=== PATIENT | male | born 1995 | race African-American/Black ===

== ENCOUNTER 2019-01-07 22:43 | Emergency (ER) | payer SELFPAY ==
[~2019-01-07] VITALS: Ht 172.7 cm; Wt 110.0 kg
[2019-01-08] MEDS ORDERED: IBUPROFEN 600MG TABLET PO STA (01:08)
[2019-01-08] MEDS ORDERED: BACITRACIN ZINC OINT UDPKT TOP ONE (01:15)
[2019-01-08 02:45] VITALS: BP 122/81
== END 2019-01-08 02:46 | disposition home or self-care (01) ==
LOC: ER 22:43
DX: L03.032 Cellulitis of left toe (principal); F12.10 Cannabis abuse, uncomplicated; F17.210 Nicotine dependence, cigarettes, uncomplicated
CPT/HCPCS: 99283

== ENCOUNTER 2023-10-11 18:42 | Emergency (ER) | payer SELFPAY ==
[~2023-10-11] VITALS: Ht 170.2 cm; Wt 114.0 kg
[2023-10-11 18:47] VITALS: BP 137/97; PULSE 89; RESP 12; TEMP 98.7; O2SAT 98
[2023-10-11] MEDS ORDERED: IBUP-2029 MT (21:38)
[2023-10-11] MEDS ORDERED: METH-653 MT (21:38)
== END 2023-10-11 22:38 | disposition home or self-care (01) ==
LOC: ER 18:42
DX: S29.011A Strain of muscle and tendon of front wall of thorax, initial encounter (principal); F12.90 Cannabis use, unspecified, uncomplicated; X58.XXXA Exposure to other specified factors, initial encounter; Y93.89 Activity, other specified; Y92.89 Other specified places as the place of occurrence of the external cause; Y99.8 Other external cause status
CPT/HCPCS: 71045; 93005; 99283

== ENCOUNTER 2024-10-26 07:28 | Emergency (ER) | payer MEDICAID ==
[~2024-10-26] VITALS: Ht 170.2 cm; Wt 105.0 kg
[~2024-10-26 07:28] MED LIST: IBUP-2029 MT; METH-653 MT
[2024-10-26 07:38] VITALS: BP 153/99; TEMP 36.9; O2SAT 100
[2024-10-26 07:57] VITALS: PULSE 71; RESP 18; O2SAT 100
[2024-10-26] MEDS ORDERED: TRIMO LEFTEYE (08:49)
== END 2024-10-26 09:16 | disposition home or self-care (01) ==
LOC: ER 07:28
DX: H10.89 Other conjunctivitis (principal); F12.10 Cannabis abuse, uncomplicated
CPT/HCPCS: 99283

== ENCOUNTER 2025-01-18 15:06 | Emergency (ER) | payer MEDICAID ==
[~2025-01-18] VITALS: Ht 172.7 cm; Wt 114.0 kg
[~2025-01-18 15:06] MED LIST changes: +TRIMO LEFTEYE
[2025-01-18 15:15] VITALS: O2SAT 96
[2025-01-18] MEDS ORDERED: IBUP-2030 MT (16:49)
[2025-01-18] MEDS: IBUPROFEN 800MG TABLET PO ONE (17:12)
[2025-01-18 17:21] VITALS: BP 126/88; PULSE 85; RESP 16; TEMP 37; O2SAT 100
== END 2025-01-18 17:23 | disposition home or self-care (01) ==
LOC: ER 15:06
DX: M67.432 Ganglion, left wrist (principal); M79.644 Pain in right finger(s); F12.90 Cannabis use, unspecified, uncomplicated; F10.90 Alcohol use, unspecified, uncomplicated; Z79.899 Other long term (current) drug therapy; Y90.9 Presence of alcohol in blood, level not specified
CPT/HCPCS: 99282

== ENCOUNTER 2025-01-30 17:42 | Emergency (ER) | payer BC, MEDICAID ==
[~2025-01-30] VITALS: Ht 172.7 cm; Wt 114.0 kg
[~2025-01-30 17:42] MED LIST changes: +IBUP-2030 MT
[2025-01-30 17:54] VITALS: O2SAT 98
[2025-01-30] MEDS ORDERED: ACET-2708 MT (19:05)
[2025-01-30 19:38] VITALS: BP 128/88; PULSE 79; RESP 18; TEMP 36.6; O2SAT 97
== END 2025-01-30 19:52 | disposition home or self-care (01) ==
LOC: ER 17:42
DX: M79.644 Pain in right finger(s) (principal); F12.90 Cannabis use, unspecified, uncomplicated; Z79.899 Other long term (current) drug therapy; W23.0XXA Caught, crushed, jammed, or pinched between moving objects, initial encounter; Y93.89 Activity, other specified; Y92.89 Other specified places as the place of occurrence of the external cause; Y99.8 Other external cause status
CPT/HCPCS: 99283; 73130; 29130; A6449; 29125